=== PATIENT | female | born 1945 | race Two or more races ===

== ENCOUNTER 2025-03-02 08:41 | Emergency (ER) | payer MEDICARE, OTHER, SELFPAY ==
[2025-03-02] VITALS (7 sets, daily range): BP systolic 121–169; BP diastolic 57–75; BMI 43.5
--- NOTE | 2025-03-02 09:11 | EDRN ---
Dr. Melvin in room w/pt at this time.
--- NOTE | 2025-03-02 09:30 | ED.GENMED ---
Addendum entered and electronically signed by Keri Marrero PA-C 03/04/25 14:50:
03/04/25: Urine culture results received which grew > 100,000 CFU of pansensitive E. coli. Did call and speak with patient's son regarding positive urine culture results and need for antibiotic. Patient has no drug allergies. Prescription for
Keflex x 7 days sent to patient's pharmacy. Return precautions discussed. She will follow-up with her primary care provider.
Original Note:
History of Present Illness
General
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
Source: patient and family
Exam Limitations: none
Time Seen by Provider: 03/02/25 09:07
Nursing documentation reviewed up to this point in time: agreed with
History of Present Illness
History of Present Illness:
79-year-old female with a past medical history of diabetes, history of DVT on Eliquis, distant history of uterine cancer status post chemoradiation who presents to the ER with grandchildren for evaluation of hematuria. Patient reports onset of
symptoms this morning and she says she has had roughly 5 episodes of gross hematuria since waking. She denies any dysuria, change in frequency, foul odor to her urine. She denies any abdominal or flank pain. She is rather confident that this is
hematuria and not vaginal bleeding. She has not had any rectal bleeding. She denies having had similar symptoms in the past. Prior surgical history of appendectomy but no other abdominal surgeries reported.
Review of Systems
Review of Systems
All Other Systems: ROS reviewed and negative except as documented in HPI and ROS
Constitutional: Denies fever
Respiratory: Denies trouble breathing
Cardiac: Denies chest pain
ABD/GI: Denies abdominal pain, nausea, vomiting, diarrhea, bloody stools or black stools
: Reports bleeding; Denies dysuria, frequency or flank pain
Musculoskeletal: Denies neck pain or back pain
Neurological: Denies dizzy or headache
Phy Exam
Physical Exam
Physical Exam:
General: Awake, alert, oriented x3; no acute distress
Head: Normocephalic, atraumatic
Eyes: Conjunctiva normal
Throat: Airway intact, handling secretions
Neck: Trachea midline, supple without meningismus
Lungs: Clear to auscultation bilaterally, no wheezing, rales, rhonchi
Heart: Regular rate and rhythm, no murmurs, gallops, or rubs
Abd: Soft, non distended, nontender to deep palpation without palpable masses; scar in right lower quadrant from prior appendectomy
Neuro: Grossly intact
Extremities: Warm and well-perfused
Scores
Heart Failure Risk
Heart Failure Risk Score: Not Applicable
Heart Score for Chest Pain Patients
STEMI patient?: Not applicable
Withdrawal Assessment of Alcohol
Withdrawal Assessment Completed?: Not applicable
Course
Orders/Labs/Results
Orders:
Orders
03/02/25 09:18
US Pelvis Only (non-obstetric) Urgent
Comment:
Reason For Exam: hematuria/vaginal bleeding, h/o uterine ca
US Renal With Bladder Urgent
Comment:
Reason For Exam: hematuria
03/02/25 09:39
Complete Blood Count/With Diff Urgent
Comprehensive Metabolic Panel Urgent
03/02/25 09:42
Urinalysis Reflex To Culture Urgent
Date Specimen was Collected: 03/02/25
Time Specimen was Collected: 09:31
Urine Microscopic Reflex Cult Urgent
Urine Culture Urgent
MK Source: U
Specimen Description:
Date Specimen was Collected: 03/02/25
Time Specimen was Collected: 09:31
03/02/25 13:45
Ferritin Urgent
Iron Urgent
PTT Urgent
Prothrombin Time Urgent
Total Iron Binding Urgent
03/02/25 13:51
US Periph Venous LOWER Ext Tunde Urgent
Comment:
Reason For Exam: eval for DVT
Abnormal Lab Results
03/02/25 03/02/25
09:39 09:42
Hct 36.7 L %
(37.0-47.0)
Abs Immat Gran (auto) 0.1 H 10^3/uL
(0-0.05)
Immature Gran % 1.4 H %
(0-0.5)
BUN 31 H mg/dl
(7-17)
Glucose 222 H mg/dl
(70-99)
Ur Occult Blood Reflex 4+ A
(Negative)
Leukocyte Esterase Rfl 1+ A
(Negative)
Urine RBC >100 A /HPF
(0-2)
Urine Albumin (Reflex) 4+ A
(Neg - Trace)
03/02/25 09:39
03/02/25 09:39
Vital Signs
Initial and Last Documented VS:
Initial Vital Signs
Temp Pulse Resp BP Pulse Ox
36.8 C 75 16 121/75 98
03/02/25 08:46 03/02/25 08:46 03/02/25 08:46 03/02/25 08:46 03/02/25 08:46
Last Documented Vital Signs
Temp Pulse Resp BP Pulse Ox
36.8 C 80 16 169/57 95
03/02/25 08:46 03/02/25 14:00 03/02/25 14:00 03/02/25 14:00 03/02/25 14:00
MDM/Problems Addressed
Differential Diagnosis Includes:
UTI, cancer (bladder, uterine, etc), urethral injury, hyperbilirubinemia, glomerulonephritis
MDM/Problems Addressed:
79-year-old female presents for evaluation of painless gross hematuria starting this morning. No other associated signs or symptoms. She is on Eliquis for history of DVT. Vital signs are stable, exam as above. Will plan to send basic labs
including CBC and a CMP. Check ultrasound of the kidneys and bladder as well as uterine ultrasound. Will reassess after the above.
Labs reviewed: CBC unremarkable no significant anemia or thrombocytopenia. CMP shows random hyperglycemia in the setting of known diabetes but otherwise unremarkable. Urinalysis positive for blood but no bacteria noted, unable to count WBCs due to
gross hematuria. Awaiting results of ultrasound and will reassess.
Pelvic ultrasound reviewed and unfortunately no visualization of uterus or ovaries. Renal ultrasound unfortunately showed large 7 cm mass in the right kidney concerning for renal cell carcinoma. This would be a new diagnosis for the patient. Will
discuss case with oncology�ostensibly for her presenting complaint would not require admission but will discuss regarding further workup with oncology.
Discussed case with oncology, requesting iron studies and coags sent off here in the ER. They will follow-up with her in the office Tuesday to arrange expeditious follow-up. Patient and family are comfortable with this plan. I did ask regarding
patient's anticoagulation given her current hematuria�she has history of DVT that was apparently diagnosed 5 months ago for which she is on Eliquis. She is not symptomatic from her DVTs any longer. Oncologist recommending checking duplex
ultrasounds today and if no signs of DVT will discontinue Eliquis.
DVT study negative, discussed with oncologist will discontinue Eliquis given her hematuria. Stable for discharge at this point I had a long discussion with patient and family they feel comfortable with follow-up plan. Spoke about return
precautions. All questions answered.
*Radiology
Radiology exam reviewed: radiology read reviewed
*Pulse Oximetry
SaO2: 98
Oxygen Mode of Delivery: Room air
Patient hypoxic: no (98%)
*Critical Care Note
Total Time (30-74mins, 75-104mins- exclusive of procedures): Not Applicable
Data Reviewed
Source: patient and family
ED Attending Note
-
Portions of this chart may have been created with voice recognition software.� Occasional wrong word or��sound alike� substitutions may have occurred due to the inherent limitations of voice recognition software.
Discharge Plan
Departure
Patient Disposition: Home (Routine Discharge)
Date of Disposition: 03/02/25
Time of Disposition: 15:18
Patient with high blood pressure during this ER visit?: Yes
Discharge Problem:
Hematuria, Mass of right kidney
Instructions: Kidney cancer
Prescriptions:
No Action
albuterol sulfate 2.5 mg /3 mL (0.083 %) solution for nebulization
2.5 mg inhalation R DAILY
atenolol 100 mg tablet
100 mg PO DAILY
polyvinyl alcohol 1.4 % Drops
1 drp OPHTHALMIC (EYE) DAILYPRN PRN (Reason: dry eyes)
travoprost 0.004 % drops
1 drp BOTH EYES HS
Theragen Tablet
1 tab PO DAILY
amlodipine 5 mg tablet
5 mg PO DAILY
acetaminophen 500 mg Tablet
1,000 mg PO DAILYPRN PRN (Reason: mild pain)
levothyroxine 100 mcg tablet
100 mcg PO DAILY
losartan-hydrochlorothiazide 100-25 mg tablet
1 tab PO DAILY
calcium carbonate [Calcium 500] 500 mg calcium (1,250 mg) Tablet
500 mg PO DAILY
montelukast 10 mg tablet
10 mg PO DAILY
aspirin 81 mg Tablet
81 mg PO DAILY
lovastatin 20 mg Tablet
20 mg PO DAILY
loratadine 10 mg Tablet
10 mg PO DAILY
Januvia 100 mg tablet
100 mg PO DAILY
Eliquis 5 mg tablet
5 mg PO BID
insulin glargine U-300 conc [Toujeo SoloStar U-300 Insulin] 300 unit/mL (1.5 mL) insulin pen
65 unit SC HS
Trelegy Ellipta 100-62.5-25 mcg blister with device
1 inh INHALATION R DAILY
Referrals:
Aaron Loving DO [Active, Hematology / Oncology] - Call in 1-3 days for appt
Terrence Encinas MD [Family Provider, Internal Medicine]
Activity Restrictions/Additional Instructions:
You should receive a call Tuesday from the oncology office to schedule follow-up regarding newly found right renal mass today in the ER. If you do not hear from the oncology office by early Tuesday you should give them a call to ensure expeditious
appointment. You should discontinue your Eliquis for the time being due to blood in your urine. The oncologist will discuss whether this needs to be resumed at your follow-up appointment. You should make sure that you drink plenty of fluids to
keep your urine as light as possible and prevent any clots or significant retention of urine. If you have any fevers, chills, worsening hematuria, difficulty urinating or any other concerning issues please return to the ER for reassessment.
Thank you for visiting the Emergency Department at [facility].
1. Please schedule a follow up appointment as directed. Call first thing tomorrow morning to make an appointment.
2. If indicated, please take your medications as instructed and indicated on discharge paperwork.
3. If any of your symptoms do not improve, or persist, or become more severe within 6-12 hours, please return to the emergency department for further care.
4. Please return to the emergency department if you develop a headache, neck pain/stiffness, fever greater than 100.4F, chest pain, shortness of breath, persistent nausea, vomiting, slurred speech, difficulty walking, numbness/tingling, weakness,
signs of infection or any other symptoms that are worrisome to you.
Please call [phone] if you have any questions.
Interventions
Interventions:
*Risk Screen - Suicide Last Done: 03/02/25 10:40
*General Assessment Last Done: 03/02/25 10:39
*Neglect/Abuse Screening Last Done: 03/02/25 10:40
*ED- Fall Risk Assessment Last Done: 03/02/25 10:39
*ED COVID-19 Vaccine History Last Done: 03/02/25 10:39
ED-Female Genitourinary Assessment Last Done: 03/02/25 10:42
Discharge Date and Time
Print Language: [id number]
[2025-03-02 09:49] LABS: Urine Character Cloudy (Clear)
[2025-03-02 10:00] LABS: ALT (SGPT) 25 U/L (0-35); AST (SGOT) 30 U/L (14-36); Albumin 4.5 g/dl (3.5-5.0); Alkaline Phosphatase 79 U/L (38-126); Blood Urea Nitrogen 31 mg/dl (7-17); Calcium 9.3 mg/dl (8.4-10.2); Carbon Dioxide 25 mmol/L (22-30); Chloride 107 mmol/L (98-107); Glucose 222 mg/dl (70-99); Potassium 5.0 mmol/L (3.5-5.1); Sodium 140 mmol/L (135-145); Total Protein 8.0 g/dl (6.3-8.2); eGFR > 60.00
[2025-03-02 10:03] LABS: Urine Red Blood Cell >100 /HPF (0-2); Urine Squamous Cell 0-2 /LPF (Few); Urine White Cell 0-2 /HPF (0-5)
[2025-03-02 10:39] LABS: Hematocrit 36.7 % (37.0-47.0); Hemoglobin 12.1 g/dL (12.0-16.0); Mean Corp Hgb Conc. 33.0 g/dL (33.0-37.0); Mean Corpuscular Volume 87.2 fL (81.0-99.0); Nucleated Red Blood Cells % 0 %; Platelet Count 135 10^3/uL (130-400); Red Cell Dist. Width 13.1 % (11.5-14.5)
[2025-03-02 14:11] LABS: INR 1.00; PT 13.5 Sec (11.4-14.6)
[2025-03-02 14:12] LABS: APTT 30.2 Sec (23.4-35.0)
[2025-03-02 14:15] LABS: Iron 68 ug/dl (37-170)
[2025-03-02 14:24] LABS: Total Iron Binding Capacity 339 ug/dl (265-497)
[2025-03-02 14:53] LABS: Ferritin 42.9 ng/ml (11.1-264.0)
== END 2025-03-02 15:50 | disposition home or self-care (01) ==
LOC: EMR 08:41
PROVIDERS: EMERGENCY PHYSICIAN Emergency Medicine; FAMILY PHYSICIAN Internal Medicine
DX: R31.9 Hematuria, unspecified (principal); N28.89 Other specified disorders of kidney and ureter; E11.65 Type 2 diabetes mellitus with hyperglycemia; Z79.01 Long term (current) use of anticoagulants; Z79.82 Long term (current) use of aspirin; Z79.84 Long term (current) use of oral hypoglycemic drugs; Z79.4 Long term (current) use of insulin; Z86.718 Personal history of other venous thrombosis and embolism; Z85.42 Personal history of malignant neoplasm of other parts of uterus; Z92.21 Personal history of antineoplastic chemotherapy; Z92.3 Personal history of irradiation
CPT/HCPCS: 99284; 76770; 76856; 80053; 81003; 81015; 82728; 83540; 83550; 85025; 85610; 85730; 87071; 87086; 87186; 93970